=== PATIENT | male | born 1955 | race Two or more races ===

== ENCOUNTER 2016-11-09 14:19 | Emergency (ER) | payer MEDICAID ==
[~2016-11-09] VITALS: Ht 152.4 cm; Wt 75.8 kg
[~2016-11-09 14:19] MED LIST: MULT-516 PO
[2016-11-09 14:20] VITALS: BP 117/70
[2016-11-09] MEDS ORDERED: CARBAMIDE PEROXIDE EAR DROPS 6.5%, 15ML ONE ×2 (14:50→14:52)
[2016-11-09] MEDS ORDERED: CARBAMIDE PEROXIDE EAR DROPS 6.5%, 15ML RIGHT EAR ONE (15:00)
== END 2016-11-09 16:13 | disposition home or self-care (01) ==
LOC: ED 16:07
DX: H65.03 Acute serous otitis media, bilateral (principal); H61.21 Impacted cerumen, right ear; K21.9 Gastro-esophageal reflux disease without esophagitis
CPT/HCPCS: 69210